=== PATIENT | female | born 1970 | race Caucasian/White ===

== ENCOUNTER 2017-04-11 12:52 | Observation (INO) | payer SELFPAY ==
[~2017-04-11] VITALS: Ht 162.6 cm; Wt 112.0 kg
--- NOTE | ~2017-04-11 | OP ---
PATIENT NAME: KITTY RUTLEDGE MEDICAL RECORD: [id number] :74 LOCATION:D.M2 D.2120 ADMISSION DATE:04/11/17 SURGEON: SOLITARIO DAS MD DATE OF OPERATION: 04/12/2017 PROCEDURES: 1. Left heart catheterization. 2. Selective coronary angiography. 3. Left ventriculogram. PROCEDURE IN DETAIL: After informed consent was obtained and after detailed explanation of risks, benefits as well as alternative therapies, the patient elected to proceed with angiogram and heart catheterization. The right femoral area was prepped and draped in normal sterile fashion. The right femoral artery was cannulated via modified Seldinger technique with placement of 5-Greenlandic sheath. All catheters exchanged through this sheath. FINDINGS: The left ventriculogram was performed in standard 30-degree TERRELL view, reveals good cardiac wall motion throughout all segments. Overall ejection fraction estimated 60%. SELECTIVE CORONARY ANGIOGRAPHY: Left main, left anterior descending, left circumflex, and right coronary artery are all smooth-walled vessels with no angiographic evidence of coronary artery disease. OVERALL IMPRESSION: 1. No angiographic evidence of coronary artery disease. 2. Normal left heart pressures. 3. Normal left ventricular systolic function. Chest pain is noncardiac in etiology. No further cardiac workup is necessary. TRANSINT:[id number] Voice Confirmation ID: [id number] DOCUMENT ID: [id number] SOLITARIO DAS MD CC: GIGI SALMON MD [id number] DICTATION DATE: 04/12/17 1240 NYLON HOT WIRE CUTTER: 04/12/17 1346 ADM IN [facility] [address] [place] [address]
--- NOTE | ~2017-04-11 | HP ---
PATIENT: KITTY RUTLEDGE MEDICAL RECORD: [id number] ACCOUNT: [id number] LOCATION:[address] : 74 ADMISSION DATE: 04/11/17 HISTORY AND PHYSICAL EXAMINATION DATE ASSIGNED TO OBSERVATION: 04/11/2017 CHIEF COMPLAINT: Chest pain. HISTORY OF PRESENT ILLNESS: This is a 46-year-old female with no local primary care provider, assigned to me on signed call, who had acute onset of chest pain at approximately noon today at rest. Her sister is concerned because of a history of heart disease in the family and brought her to the Emergency Room where patient reported total relief of her chest pain with nitroglycerin. She is assigned to observation for further workup of her chest pain. PAST MEDICAL AND SURGICAL HISTORY: She went through menopause at age 30. She has had no surgeries. ALLERGIES: No known drug allergies. HOME MEDICATIONS: None. SOCIAL HISTORY: Lives with significant other. 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 HABITS: She smokes about a pack of cigarettes a day. She drinks an unknown amount of alcohol in a week. Denies any illicit drugs. FAMILY HISTORY: Father at 52 of some sort of cancer. Mother at 52 of congestive heart failure. She had had a myocardial infarction, and a sister is alive with history of coronary artery disease and stents, and she too is 52. REVIEW OF SYSTEMS: GENERAL: No major weight changes. HEENT: No particular sinus or allergy problems. RESPIRATORY: No history of emphysema or asthma. She does smoke. CARDIAC: Chest pain today as above. GASTROINTESTINAL: Denies diarrhea, constipation or heartburn. GENITOURINARY: No significant problems there. MUSCULOSKELETAL: No significant problems there. NEUROLOGIC: No seizures. No migraine headaches. PSYCHIATRIC: Denies depression. No melancholia. PHYSICAL EXAMINATION: VITAL SIGNS: Blood pressure 152/96, O2 sat 97%, she is afebrile, heart rate 104. GENERAL: She is awake and alert, does not appear to be in acute distress. HEENT: Grossly within normal limits. NECK: Supple. No JVD or bruit. HEART: Regular rate and rhythm without murmur. LUNGS: Fairly clear. ABDOMEN: Soft, flat, nontender, obese. EXTREMITIES: No pitting edema. NEUROLOGIC: Intact. HISTORY AND PHYSICAL [id number] KITTY RUTLEDGE LABORATORY AND DIAGNOSTIC DATA: EKG is normal. Chest x-ray shows nothing acute. Urinalysis is cloudy with trace leukocyte esterase, occasional clue cells and many bacteria. Troponin is less than 0.017. LFTs are okay. Basic metabolic panel is normal. CBC with a white count 9700, hemoglobin 16.4, hematocrit 50.5, MCV is 103.7. D-dimer is less than 0.27. ASSESSMENT: Chest pain in a patient with multiple risk factors. PLAN: We will observe overnight. Get serial cardiac enzymes. Cardiology has been consulted by ED. Other tests and procedures as warranted. TRANSINT:[id number] Voice Confirmation ID: [id number] DOCUMENT ID: [id number] GIGI SALMON MD at 1342 CC: [id number] DICTATION DATE: 04/11/172013 BRAND ATTENDANT: 04/11/17 2344 ADM IN [facility] [address] [place] [address]
--- NOTE | ~2017-04-11 | HEMODYNAMI ---
PATIENT:KITTY RUTLEDGE MEDICAL RECORD: [id number] : 74 LOCATION:[facility] D.2120 ADMISSION DATE: 04/11/17 Generatedon:04/12/201712:41 Patient name: KITTY RUTLEDGE Patient #: [id number] SSN: DO B: 1970 Date of study: 04/12/2017 Page: Of Hemodynamic Procedure Report Patient Data Patient Demographics Procedure consent was obtained First Name: KITTY Gender: Female Last Name: AAMIR : 1970 Patient #: [id number] Age: 46 year(s) Race: Unknown Additional ID: [id number] Contact details [address]: [address] [place] [address] State: [place] City: [place] Zip code: [address] Admission Admission Data Admission Date: 04/11/2017 Admission Time: 19:06 Room #: D.2120 Lab Results Lab Result Date: 04/12/2017 Lab Result Time: 0:00 Biochemistry Name Units Result Min Max BUN mg/dl 9 --(*---)-- 7 18 Creatinine mg/dl 1 --(--*-)-- 0.6 1.3 CBC Name Units Result Min Max Hemoglobin g/dl 16.4 --(--*-)-- 13.5 17.5 Procedure Procedure Types Cath Procedure Diagnostic Procedure [facility] w/Coronaries Miscellaneous Procedures Moderate Sedation up to 15 minutes Procedure Description Procedure Date Procedure Date: 04/12/2017 Procedure Start Time: 12:32 Procedure End Time: 12:39 Procedure Staff Name Function Alexy Drake MD Performing Physician Khalida Castaneda RT Scrub Ishaan Lane RN Nurse Juan Duarte RT Monitor Procedure Data Cath Procedure Fluoroscopy Diagnostic fluoroscopy Total fluoroscopy Time: 0.8 time: 0.8 min min Diagnostic fluoroscopy Total fluoroscopy dose: 230 dose: 230 mGy mGy Contrast Material Contrast Material Type Amount (ml) Isovue 300 36 Entry Location Entry Primary Successful Side Size Upsize Upsize Entry Closure Succes sful Closure Location (Fr) 1 (Fr) 2 (Fr) Remarks Device Remarks Femoral Right 5 Fr Exoseal artery Estimated blood loss: 10 ml Diagnostic catheters Device Type Used For End Catheter Placement MULTIPACK Pigtail 5 Fr Procedure catheter MULTIPACK JL 4.0 5Fr Procedure catheter MULTIPACK 3DRC 5Fr Procedure catheter Procedure Complications No complications Procedure Medications Medication Administration Route Dosage 0.9% NaCl I.V. 100 ml/hr Oxygen NC 2 l/min Heparin Flush Bag added to field 2 bags (1000units/500ml NS) Lidocaine 2% added to field 20 Versed I.V. 2 mg Fentanyl I.V. 100 mcg Hemodynamics Rest HGB: 16.4 (g/dl) Heart Rate: 71 (bpm) Snapshots Pre Cath Intra NCS Post Cath Vital Signs Time Heart Resp SPO2 etCO2 NIBP (mmHg) Rhythm Pain Sedation Rate (ipm) (%) (mmHg) Status Level (bpm) 12:26:59 68 16 98 39.5 133/86(105) NSR 0 (11) 10(A) , No pain 12:31:15 69 16 96 44 131/82(97) NSR 0 (11) 10(A) , No pain 12:35:27 74 15 95 41.7 142/91(106) NSR 0 (11) 10(A) , No pain 12:39:43 68 18 97 38 131/89(107) NSR 0 (11) 10(A) , No pain Medications Time Medication Route Dose Verified Delivered Reason Notes Effe ctiveness by by 12:27:50 0.9% NaCl I.V. 100 Ishaan Ishaan Per ml/hr Domingo Lane physician RN RN 12:28:02 Oxygen NC 2 Ishaan Ishaan Per l/min Domingo Lane physician RN RN 12:28:14 Heparin Flush added 2 Ishaan Ishaan used for Bag to bags Lorigan Lorigan procedure (1000units/500ml field RN RN NS) 12:28:27 Lidocaine 2% added 20ml Ishaan Sihaan for local to vial Lorigan Lorigan anesthetic field RN RN 12:28:44 Versed I.V. 2 mg Ishaan Ishaan for Lorigan Lorigan sedation RN RN 12:28:53 Fentanyl I.V. 100 Ishaan Ishaan for mcg Lorigan Lorigan sedation RN emissions testing technician Log Time Note 11:55:20 Time tracking: Regular hours 11:55:25 Plan of Care:Hemodynamics will remain stable., Cardiac rhythm will remain stable., Comfort level will be maintained., Respiratory function will remain adequate., Patient/ family verbilizes understanding of procedure., Procedure tolerated without complication., Recovers from procedure without complications.. 11:56:03 H&P Date Dictated: 04/11/2017 Within 30 days and on chart.. 11:56:43 Lab Result : Creatinine 1 mg/dl 11::43 Lab Result : BUN 9 mg/dl 11::43 Lab Result : Hemoglobin 16.4 g/dl 11:56:46 Lab results completed and on chart. 12:03:[address] RN sent for patient. Start room use. 12:16:27 Patient received from [facility] to [facility] 2 Alert and oriented. Tansferred to table in Supine position. 12:16:28 Warm blankets applied, and chana hugger turned on for patient comfort. 12:16:28 Correct patient and procedure confirmed by team. 12:16:29 Signed procedure consent form obtained from patient. 12:16:30 ECG and BP/O2 sat monitors applied to patient. 12:25:51 Vital chart was started 12:25:52 Baseline sample Acquired. 12::55 Rhythm: sinus rhythm 12:25:56 Full Disclosure recording started 12:25:58 Pre-procedure instructions explained to patient. 12:25:58 Pre-op teaching completed and patient verbalized understanding. 12:26:01 Family in patients room. 12:26:02 Patient NPO since Midnight. 12:26:03 Is the patient allergic to Iodine/contrast media? No. 12:26:12 Patient diabetic? No. 12:26:17 Previous problem with sedation/anesthesia? No ? 12:26:20 Snore? Yes 12:26:21 Sleep apnea? No 12:26:22 Deviated septum? No 12:26:24 Opens mouth fully? Yes 12:26:25 Sticks out tongue? Yes 12:26:27 Airway obstruction? No ? 12:26:30 Dentures? No ? 12:26:34 Pre procedure: right dorsailis pedis pulse 1+ Palpable, but thready & weak; easily obliterated 12:26:36 Modified Faraz's test Ulnar > 7 seconds. 12:26:46 FAILED ALLENS 12:26:49 Patient pain scale 0/10 ?. 12::56 IV patent on arrival in left forearm with 0.9% NaCl at [facility]. 12::00 Right groin area was prepped with chlora-prep and draped in sterile fashion 12:: Alarms reviewed by R. N. 12:: Sharps counted by scrub and verified by R.N. 12:: --------ALL STOP TIME OUT------ 12:: Final Timeout: patient, procedure, and site verified with staff and physician. All members of the team are in agreement. 12:: Right groin site verified by team. 12:: Physical assessment completed. ASA score P 2 - A patient with mild systemic disease as per Alexy Drake MD. 12::14 Sedation plan: IV Moderate Sedation Medication:Versed, Fentanyl 12::50 0.9% NaCl 100 ml/hr I.V. was administered by Ishaan Lane RN; Per physician; 12:: Oxygen 2 l/min NC was administered by Ishaan Lane RN; Per physician; 12::14 Heparin Flush Bag (1000units/500ml NS) 2 bags added to field was administered by Ishaan Lane RN; used for procedure; 12:: Lidocaine 2% 20ml vial added to field was administered by Ishaan Lane RN; for local anesthetic; 12::44 Versed 2 mg I.V. was administered by Ishaan Lane RN; for sedation; 12::53 Fentanyl 100 mcg I.V. was administered by Ishaan Lane RN; for sedation; 12:32:04 Use device set Femoral Dx 12:32:06 Tegaderm 4 x 4 (1626W) opened to sterile field. 12:32:07 ACIST Hand Control (09524) opened to sterile field. 12:32:07 ACIST Manifold (80333) opened to sterile field. 12:32:09 ACIST Syringe (32820) opened to sterile field. 12:32: Bag Decanter (2002S) opened to sterile field. 12:32: Medline Cath Pack ([id number]) opened to sterile field. 12:32: SHEATH 5FR [place] (HQN669) opened to sterile field. 12:32:10 DIAGNOSTIC WIRE .035 260cm J wire (398211) opened to sterile field. 12:32:11 DIAGNOSTIC Multipack 5Fr catheter set (OH4139) opened to sterile field. 12:32:12 PERCUTANEOUS ENTRY 19GA needle opened to sterile field. 12:32:18 Procedure started. 12:32:25 Local anesthetic to right femoral artery with Lidocaine 2% by Alexy Drake MD.INITIAL ACCESS ONLY 12:33:06 A 5 Fr sheath was inserted into the Right Femoral artery 12:33:30 A MULTIPACK Pigtail 5 Fr catheter was advanced over the wire and used for Procedure. 12:33:51 LV angiography performed. 12:34:01 LV gram done using TERRELL 12:34:08 EF : 50 % 12:34:11 Injector settings: Ml/sec: 10, Volume: 20, 12:34:14 Catheter removed. 12:34:21 A MULTIPACK JL 4.0 5Fr catheter was advanced over the wire and used for Procedure. 12:34:57 LCA angiography performed. 12:35:39 Catheter removed. 12:36:46 A MULTIPACK 3DRC 5Fr catheter was advanced over the wire and used for Procedure. 12:36:49 RCA angiography performed. 12:36:50 Catheter removed. 12:36:51 EXOSEAL 5Fr (EX500) opened to sterile field. 12:37:01 Sheath removed intact; hemostasis achieved with Exoseal to the Right Femoral artery. 12:37:02 Procedure ended.(Physican Out) 12:37:51 Fluoroscopy time 00.80 minutes. 12:37:54 Fluoroscopy dose: 230 mGy 12:37:54 Flurop Dose total: 230 12:37:59 Contrast amount:Isovue 300 36ml. 12:38:01 Sharps counted by scrub and verified by R.N. 12:38:02 Insertion/operative site no bleeding no hematoma. 12:38:05 Post-op/insertion site Right Femoral artery dressed using a 4 x 4 and Tegaderm. 12:38:07 Post Procedure Pulses reassessed and unchanged 12:38:10 Post-procedure physical assessment completed. ASA score P 2 - A patient with mild systemic disease as per Alexy Drake MD. 12:38:12 Post procedure rhythm: unchanged. 12:38:14 Estimated blood loss: 10 ml 12:38:17 Post procedure instruction explained to patient.Patient verbalizes understanding. 12:38:17 Patient needs reinforcement of post procedure teaching. 12:38:27 Procedure Complication : No complications 12:38:29 Procedure and supply charges have been captured, reviewed, submitted and are correct. 12:39:22 Vital chart was stopped 12:39:23 See physician's report for complete and final results. 12:39:25 Report given to PCU. 12:39:36 Patient transfered to PCU with Bed. 12:39:40 Procedure ended. 12:39:40 Full Disclosure recording stopped 12:40:58 End room use (Document Last) Device Usage Item Name Manufacture Quantity Catalog Hospital Part Current Minimal Lot# / Number Charge Number Stock Stock Serial# Code Tegaderm 4 x 3M 1 1626W [id number] [id number] [id number] 5 4 (1626W) ACIST Hand Acist 1 13014 592266 468259 574880 5 Control Medical (51271) Systems Inc ACIST Acist 1 57818 429966 181921 326127 5 Manifold Medical (39050) Systems Inc ACIST Acist 1 54125 883281 228373 421373 20 Syringe Medical (86906) Systems Inc Bag Decanter Microtek 1 2002S 022677 13560 093582 5 (2001S) Medical Inc. Medline Cath Cardinal 1 [id number] 759523 09507 412536 5 Pack Health ([id number]) SHEATH 5FR Terumo 1 FMX080 764526 829050 761801 40 [place] (RZC260) DIAGNOSTIC [facility] 1 494830 499325 441764 840289 30 WIRE .035 260cm J wire (765662) DIAGNOSTIC Cardinal 1 VR0924 026551 77347 104215 30 Multipack Health 5Fr catheter set (HQ2396) PERCUTANEOUS Cook Medical 1 I34429 436982 591440 5 ENTRY 19GA needle MULTIPACK Cardinal 1 474246 5 Pigtail 5 Fr Health catheter MULTIPACK JL Cardinal 1 623388 5 4.0 5Fr Health catheter MULTIPACK Cardinal 1 232178 5 3DRC 5Fr Health catheter EXOSEAL 5Fr Cardinal 1 EX500 621105 228650 192923 10 (EX500) Health Signature Audit [place] Stage Time Signature Unsigned Intra-Procedure 04/12/2017 Juan Duarte 12:41:15 PM RT(R) Signatures Monitor : Juan Duarte RT Signature : Date : Time : [facility] [address] [place] [address]
[2017-04-11 13:36] LABS: APPEARANCE CLOUDY (CLEAR); BILIRUBIN NEGATIVE (NEGATIVE); COLOR YELLOW (YELLOW); GLUCOSE NEGATIVE (NEGATIVE); KETONE NEGATIVE (NEGATIVE); NITRITE NEGATIVE (NEGATIVE); PROTEIN NEGATIVE (NEGATIVE); SPECIFIC GRAVITY 1.015 (1.005-1.020); UROBILINOGEN NORMAL (NORMAL)
[2017-04-11 13:37] LABS: BACTERIA MANY /hpf (NONE SEEN); RED CELLS - URINE 0-5 /hpf (0-5); WHITE CELLS - URINE 0-5 /hpf (0-5)
[2017-04-11 13:39] LABS: MUCUS <1+ /lpf (NONE SEEN)
[2017-04-11 13:55] LABS: ALBUMIN 3.4 g/dL (3.4-5.0); ALKALINE PHOSPHATASE 64 U/L (46-116); ALT (SGPT) 29 U/L (10-68); BILIRUBIN - TOTAL 0.15 mg/dL (0.2-1.3); CALC OSMOLALITY 285 mosm/kg (275-300); CALCIUM 8.7 mg/dL (8.5-10.1); CARBON DIOXIDE 30.9 mmol/L (21.0-32.0); CHLORIDE - SERUM 107 mmol/L (98-107); GLUCOSE 104 mg/dL (74-106); POTASSIUM - SERUM 4.1 mmol/L (3.5-5.1); PROTEIN - SERUM 6.6 g/dL (6.4-8.2); SODIUM 144 mmol/L (136-145); UREA NITROGEN 9 mg/dL (7-18); eGFR NON AFRICAN AMERICAN 64 mL/min (90-120)
[2017-04-11 14:10] LABS: BASOPHILS 0.2 % (0-2); EOSINOPHILS 0.6 % (0-7); HEMATOCRIT 50.5 % (36.0-48.0); HEMOGLOBIN 16.4 g/dL (12-16); IMMATURE GRANULOCYTES 0.8 % (0-5); LYMPHOCYTES 23.9 % (15-50); MCH 33.7 pg (26.0-34.0); MCHC 32.5 g/dL (31.0-37.0); MCV 103.7 fL (80.0-100.0); MEAN PLATELET VOLUME 9.3 fL (7.4-10.4); MONOCYTES 7.9 % (2-11); NEUTROPHILS 66.6 % (40-80); PLATELET COUNT 344 10x3/uL (130-400); RBC 4.87 10x6/uL (4.00-5.40); WBC 9.7 10x3/uL (4.8-10.8)
[2017-04-11 14:19] LABS: CREATINE KINASE 291 UL (21-215)
[2017-04-11 14:21] LABS: TROPONIN-I < 0.017 ng/mL (0.000-0.060)
[2017-04-11 14:22] LABS: CKMB 2.5 U/L (0.0-3.6)
[2017-04-11 18:02] LABS: MAGNESIUM - SERUM 2.1 mg/dL (1.8-2.4)
[2017-04-11 19:17] LABS: CKMB 1.4 U/L (0.0-3.6); CREATINE KINASE 237 UL (21-215); TROPONIN-I < 0.017 ng/mL (0.000-0.060)
[2017-04-12] VITALS: BP 118/67
[2017-04-12 00:08] VITALS: BP 147/100; BMI 42.5
[2017-04-12 00:56] LABS: CKMB 1.5 U/L (0.0-3.6); CREATINE KINASE 220 UL (21-215); TROPONIN-I < 0.017 ng/mL (0.000-0.060)
[2017-04-12 04:00] VITALS: BP 118/84
[2017-04-12 07:00] VITALS: BP 133/88
[2017-04-12 07:07] LABS: CKMB 1.4 U/L (0.0-3.6); CREATINE KINASE 206 UL (21-215)
[2017-04-12 07:08] LABS: TROPONIN-I < 0.017 ng/mL (0.000-0.060)
[2017-04-12 12:41] VITALS: BP 118/83
[2017-04-12 13:36] VITALS: Ht 162.6 cm; Wt 112.0 kg
== END 2017-04-12 16:06 | disposition home or self-care (01) ==
LOC: D.ER 12:52 → D.M2 19:06 → OBSVTIME 19:06 → D.M2 19:06
PROVIDERS: Emergency Medicine
DX: R07.89 Other chest pain (principal)

== ENCOUNTER 2018-09-04 10:16 | Emergency (ER) | payer SELFPAY ==
[~2018-09-04] VITALS: Ht 162.6 cm; Wt 111.1 kg
[2018-09-04 10:18] VITALS: BP 150/98; Ht 162.6 cm; Wt 111.1 kg
[2018-09-04] MEDS ORDERED: FLUTICASONE PRO16 GM NASAL (10:52)
[2018-09-04] MEDS ORDERED: AUGMENTIN 875-11 TAB PO (10:52)
== END 2018-09-04 11:31 | disposition home or self-care (01) ==
LOC: D.ER 10:16
DX: J01.90 Acute sinusitis, unspecified (principal); K21.9 Gastro-esophageal reflux disease without esophagitis; F17.210 Nicotine dependence, cigarettes, uncomplicated

== ENCOUNTER 2019-02-19 09:15 | Emergency (ER) | payer SELFPAY ==
[~2019-02-19] VITALS: Ht 162.6 cm; Wt 109.1 kg
[~2019-02-19 09:15] MED LIST: AUGMENTIN 875-11 TAB PO; FLUTICASONE PRO16 GM NASAL
[2019-02-19 09:18] VITALS: Ht 162.6 cm; Wt 109.1 kg
[2019-02-19 09:34] LABS: BASOPHILS 0.2 % (0-2); EOSINOPHILS 1.3 % (0-7); HEMATOCRIT 51.2 % (36.0-48.0); HEMOGLOBIN 17.2 g/dL (12-16); LYMPHOCYTES 22.8 % (15-50); MCH 35.9 pg (26.0-34.0); MCHC 33.6 g/dL (31.0-37.0); MCV 106.9 fL (80.0-100.0); MEAN PLATELET VOLUME 9.4 fL (7.4-10.4); MONOCYTES 9.9 % (2-11); NEUTROPHILS 64.8 % (40-80); PLATELET COUNT 279 10x3/uL (130-400); RBC 4.79 10x6/uL (4.00-5.40); RDW 13.6 % (11.5-14.5); WBC 10.3 10x3/uL (4.8-10.8)
[2019-02-19 09:54] LABS: CALC OSMOLALITY 276 mosm/kg (275-300); CALCIUM 9.2 mg/dL (8.5-10.1); CARBON DIOXIDE 27.7 mmol/L (21.0-32.0); CHLORIDE - SERUM 103 mmol/L (98-107); CREATININE - SERUM 0.8 mg/dL (0.6-1.3); GLUCOSE 107 mg/dL (74-106); POTASSIUM - SERUM 4.4 mmol/L (3.5-5.1); SODIUM 139 mmol/L (136-145); UREA NITROGEN 10 mg/dL (7-18); eGFR NON AFRICAN AMERICAN 82 mL/min (90-120)
[2019-02-19 10:01] LABS: APTT 28.3 SECONDS (22.8-39.4); INR 0.95 (0.85-1.17); PROTIME 12.2 SECONDS (11.6-15.0)
[2019-02-19 10:09] LABS: ALBUMIN 3.7 g/dL (3.4-5.0); ALKALINE PHOSPHATASE 99 U/L (46-116); ALT (SGPT) 59 U/L (10-68); BILIRUBIN - TOTAL 0.34 mg/dL (0.2-1.3); CKMB 2.7 U/L (0.0-3.6); CREATINE KINASE 265 UL (21-215); MAGNESIUM - SERUM 1.7 mg/dL (1.8-2.4); PROTEIN - SERUM 7.5 g/dL (6.4-8.2); TROPONIN-I < 0.017 ng/mL (0.000-0.060)
[2019-02-19] MEDS ORDERED: TESSALON PERLE100 MG PO (10:23)
[2019-02-19 10:34] VITALS: BP 148/89
== END 2019-02-19 10:34 | disposition home or self-care (01) ==
LOC: D.ER 09:15
PROVIDERS: Family Medicine
DX: J20.9 Acute bronchitis, unspecified (principal); R05 Cough; Z72.0 Tobacco use